=== PATIENT | male | born 1960 | race Caucasian/White ===

== ENCOUNTER → 2019-12-15 | Outpatient (REF) | payer BC | LOC: M LAB REF 17:16 | PROVIDERS: ATTEND Dermatology | DX: D49.2 Neoplasm of unspecified behavior of bone, soft tissue, and skin (principal) ==

== ENCOUNTER → 2019-12-30 | Outpatient (REF) | payer BC | LOC: M LAB REF 18:10 | PROVIDERS: ATTEND Dermatology | DX: C44.319 Basal cell carcinoma of skin of other parts of face (principal) ==

== ENCOUNTER → 2025-04-07 | Outpatient (CLI) | payer BC | LOC: M PLARAD 08:18 | PROVIDERS: ATTEND Otolaryngology | DX: K13.29 Other disturbances of oral epithelium, including tongue (principal); J32.8 Other chronic sinusitis; J34.2 Deviated nasal septum ==

== ENCOUNTER 2025-04-28 08:30 | Day surgery (SDC) | payer BC ==
[~2025-04-28] VITALS: Ht 182.9 cm; Wt 119.9 kg
[~2025-04-28 08:30] MED LIST: ARIP1TAB4 PO; OMEP40CA5 PO; SILD25TA2 PO; SIMV20TA22 PO; VALS1TAB66 PO; VENL150C43 PO
[2025-04-28] MEDS ORDERED: LIDOCAINE 1% SDV 5 ML VIAL SC PRN (08:50)
[2025-04-28] MEDS: LR 1,000 ML IV SCH (08:56)
[2025-04-28] MEDS ORDERED: SUGAMMADEX SODIUM 500 MG/5 ML VIAL As Ordered ONE (09:21)
[2025-04-28] MEDS ORDERED: dexAMETHasone 4 MG/ML 1 ML VIAL As Ordered ONE (09:21)
[2025-04-28] MEDS ORDERED: LIDOCAINE 2% 100 MG/5 ML SDV (FOR ANES.) As Ordered ONE (09:21)
[2025-04-28] MEDS ORDERED: ONDANSETRON 4MG 2ML VIAL As Ordered ONE (09:21)
[2025-04-28] MEDS ORDERED: ROCURONIUM BROMIDE 50MG/5ML VIAL As Ordered ONE (09:21)
[2025-04-28] MEDS ORDERED: MIDAZOLAM INJ 2 MG/2 ML VIAL As Ordered ONE (09:27)
[2025-04-28] MEDS: OXYMETAZOLINE 0.05% NASAL SPRAY As Ordered ONE (11:15)
[2025-04-28] MEDS ORDERED: ACETAMINOPHEN 1000MG/100ML IV BAG As Ordered ONE (11:33)
[2025-04-28] MEDS ORDERED: GLYCOPYRROLATE INJ 0.2 MG/ML 2 ML VIAL As Ordered ONE (11:39)
[2025-04-28] MEDS: metroNIDAZOLE/NACL 500 MG (5 MG/ML) 100 ML BAG As Ordered ONE (11:41)
[2025-04-28] MEDS: LIDOCAINE W/EPINEPHrine 1% 20 ML VIAL As Ordered ONE (12:23)
[2025-04-28] MEDS ORDERED: HYDROMORPHONE HCL 0.5 MG/0.5 ML SYRINGE IV PRN (12:40)
[2025-04-28] MEDS ORDERED: ONDANSETRON 4MG 2ML VIAL IV PRN (12:40)
[2025-04-28] MEDS ORDERED: LR 1,000 ML IV SCH (12:40)
[2025-04-28 13:42] VITALS: BP 124/73; TEMP 97.1; O2SAT 96
== END 2025-04-28 13:44 | disposition home or self-care (01) ==
LOC: M SDC 08:30
PROVIDERS: ATTEND Otolaryngology
DX: D00.07 Carcinoma in situ of tongue (principal); I10 Essential (primary) hypertension; E78.00 Pure hypercholesterolemia, unspecified; G47.30 Sleep apnea, unspecified; K21.9 Gastro-esophageal reflux disease without esophagitis; Z79.899 Other long term (current) drug therapy; Z90.49 Acquired absence of other specified parts of digestive tract; Z90.89 Acquired absence of other organs
CPT/HCPCS: 41112; 88305; 93005; J0131; J0690; J1100; J1596; J1836; J2250; J2405; J3010

== ENCOUNTER 2025-05-26 10:46 | Day surgery (SDC) | payer BC ==
[~2025-05-26] VITALS: Ht 182.9 cm; Wt 120.2 kg
[2025-05-26] MEDS ORDERED: LIDOCAINE 2% 100 MG/5 ML SDV (FOR ANES.) As Ordered ONE (10:52)
[2025-05-26] MEDS ORDERED: ROCURONIUM BROMIDE 50MG/5ML VIAL As Ordered ONE (10:52)
[2025-05-26] MEDS ORDERED: SUGAMMADEX SODIUM 200 MG/2 ML VIAL As Ordered ONE (10:52)
[2025-05-26] MEDS ORDERED: MIDAZOLAM INJ 2 MG/2 ML VIAL As Ordered ONE (10:53)
[2025-05-26] MEDS ORDERED: dexAMETHasone 4 MG/ML 1 ML VIAL As Ordered ONE (10:53)
[2025-05-26] MEDS ORDERED: ONDANSETRON 4MG 2ML VIAL As Ordered ONE (10:53)
[2025-05-26] MEDS ORDERED: LIDOCAINE 5% OINT 30 GM TUBE As Ordered ONE (11:26)
[2025-05-26] MEDS: LR 1,000 ML IV SCH (11:32)
[2025-05-26] MEDS: dexAMETHasone 4 MG/ML 1 ML VIAL IV ONE (11:41)
[2025-05-26] MEDS ORDERED: GLYCOPYRROLATE INJ 0.2 MG/ML 2 ML VIAL As Ordered ONE (11:42)
[2025-05-26] MEDS ORDERED: PHENYLephrine 500MCG 5ML (100MCG/ML) SYRINGE As Ordered ONE (12:08)
[2025-05-26] MEDS: metroNIDAZOLE/NACL 500 MG (5 MG/ML) 100 ML BAG As Ordered ONE (12:19)
[2025-05-26] MEDS: LIDOCAINE W/EPINEPHrine 1% 20 ML VIAL As Ordered ONE (12:22)
[2025-05-26] MEDS ORDERED: ACETAMINOPHEN 1000MG/100ML IV BAG As Ordered ONE (12:26)
[2025-05-26] MEDS ORDERED: VASOPRESSIN INJ 20UNITS/ML 1ML VIAL As Ordered ONE (13:16)
[2025-05-26] MEDS ORDERED: HYDROmorphone HCL 2 MG/ML 1 ML VIAL As Ordered ONE (13:53)
[2025-05-26] MEDS ORDERED: HYDROMORPHONE HCL 0.5 MG/0.5 ML SYRINGE IV PRN (14:35)
[2025-05-26] MEDS: ONDANSETRON 4MG 2ML VIAL IV PRN (15:28)
[2025-05-26 16:07] VITALS: BP 128/72; TEMP 98.1; O2SAT 95
== END 2025-05-26 16:15 | disposition home or self-care (01) ==
LOC: M SDC 10:46
PROVIDERS: ATTEND Otolaryngology
DX: D00.07 Carcinoma in situ of tongue (principal); I10 Essential (primary) hypertension; E78.00 Pure hypercholesterolemia, unspecified; K21.9 Gastro-esophageal reflux disease without esophagitis; G47.30 Sleep apnea, unspecified; Z79.899 Other long term (current) drug therapy; Z90.49 Acquired absence of other specified parts of digestive tract; Z90.89 Acquired absence of other organs

== ENCOUNTER 2025-05-28 10:47 | Inpatient (IN) | payer BC ==
[~2025-05-28] VITALS: Ht 182.9 cm; Wt 118.1 kg
[2025-05-28] MEDS: PANTOPRAZOLE 40MG VIAL IV SCH (09:00)
[2025-05-28] MEDS ORDERED: HYDR-3716 PO (11:03)
[2025-05-28] MEDS ORDERED: PERI12LIQ SS (11:03)
[2025-05-28 12:27] LABS: BASO # 0.1 10^3/uL (0.0-0.2); BASO % 0.5 % (0.0-1.0); EOS # 0.1 10^3/uL (0.0-0.5); EOS % 0.6 % (0.0-3.0); LYMPH # 3.0 10^3/uL (1.5-5.0); LYMPH % 28.3 % (24.0-44.0); MONO # 0.9 10^3/uL (0.0-0.8); MONO % 8.4 % (2.0-8.0); NEUTROPHILS # 6.6 10^3/uL (1.5-8.5); NEUTROPHILS % 61.8 % (36.0-66.0); PLATELET COUNT, AUTOMATED 260 10^3/uL (150-450)
[2025-05-28] MEDS ORDERED: ISOVUE-370 76% 100 ML VIAL As Ordered ONE (12:46)
[2025-05-28 13:21] LABS: ERYTHROCYTE SEDIMENTATION RATE 61 mm/hr (0-20)
[2025-05-28 13:41] LABS: C REACTIVE PROTEIN QUANTITATIV 7.78 MG/DL (<1.0)
[2025-05-28] MEDS ORDERED: HOME MED LIST COMPLETE! XX SCH (14:15)
[2025-05-28] MEDS: AMPICILLIN SOD/SULBACTAM SOD 3 GM in DEXTROSE 5% (D5W) MINI-BAG PLU 100 ML IV ONE (14:45)
[2025-05-28] MEDS ORDERED: D5W/0.45% SODIUM CHLORIDE 1,000 ML IV SCH (16:00)
[2025-05-28] MEDS: NS (Normal Saline) 0.9% 1,000 ML IV ONE (16:06)
[2025-05-28 16:42] LABS: CALCIUM LEVEL 9.3 MG/DL (8.3-10.6); CARBON DIOXIDE LEVEL 24.0 MMOL/L (20-31); CHLORIDE LEVEL 104.0 MMOL/L (98-107); CREATININE FOR GFR 1.06 MG/DL (0.70-1.30); GLOMERULAR FILTRATION RATE 79.4 (>49); POTASSIUM SERUM 4.7 MMOL/L (3.5-5.1); SODIUM LEVEL 141.0 MMOL/L (136-145)
[2025-05-28 17:03] VITALS: BP 139/93; TEMP 97.7; O2SAT 94
[2025-05-28] MEDS: D5W/0.45% SODIUM CHLORIDE 1,000 ML IV SCH (18:16)
[2025-05-28 19:41] VITALS: BP 142/83; TEMP 97.6; O2SAT 92
[2025-05-28] MEDS: CHLORHEXIDINE GLUCONATE 0.12% 15 ML UDC MT SCH (20:47)
[2025-05-28] MEDS: dexAMETHasone 4 MG/ML 1 ML VIAL IV SCH (20:47)
[2025-05-28] MEDS: AMPICILLIN SOD/SULBACTAM SOD 3 GM in DEXTROSE 5% (D5W) MINI-BAG PLU 100 ML IV SCH (20:47)
[2025-05-28] MEDS ORDERED: VENLAFAXINE **XR** 75MG CAPSULE PO SCH (21:00)
[2025-05-28] MEDS ORDERED: SIMVASTATIN 20 MG TAB PO SCH (21:00)
[2025-05-28 23:05] VITALS: BP 135/79; TEMP 97.7; O2SAT 92
[2025-05-29 03:29] VITALS: BP 137/78; TEMP 97; O2SAT 92
[2025-05-29 06:18] LABS: PLATELET COUNT, AUTOMATED 282 10^3/uL (150-450)
[2025-05-29 06:42] LABS: C REACTIVE PROTEIN QUANTITATIV 6.21 MG/DL (<1.0); CALCIUM LEVEL 8.8 MG/DL (8.3-10.6); CARBON DIOXIDE LEVEL 27 MMOL/L (20-31); CHLORIDE LEVEL 101 MMOL/L (98-107); CREATININE FOR GFR 0.86 MG/DL (0.70-1.30); GLOMERULAR FILTRATION RATE > 90.0 (>49); POTASSIUM SERUM 4.0 MMOL/L (3.5-5.1); SODIUM LEVEL 140 MMOL/L (136-145)
[2025-05-29 08:02] VITALS: BP 129/77; TEMP 97; O2SAT 93
[2025-05-29] MEDS: ENOXAPARIN 40 MG/0.4 ML SYRINGE (J1650 PER 10MG) SC SCH (10:27)
[2025-05-29 14:30] VITALS: BP 155/87; TEMP 97.6; O2SAT 95
[2025-05-29] MEDS: VALSARTAN 80MG TAB PO SCH (14:40)
[2025-05-29] MEDS: VENLAFAXINE **XR** 75MG CAPSULE PO ONE (15:56)
[2025-05-29 20:07] VITALS: BP 120/72; TEMP 97.5; O2SAT 93
[2025-05-29] MEDS: SIMVASTATIN 20 MG TAB PO SCH (20:27)
[2025-05-30 06:00] VITALS: BP 119/74; TEMP 97.2; O2SAT 93
[2025-05-30 07:22] LABS: BASO # 0.0 10^3/uL (0.0-0.2); BASO % 0.2 % (0.0-1.0); EOS # 0.0 10^3/uL (0.0-0.5); EOS % 0.1 % (0.0-3.0); LYMPH # 2.7 10^3/uL (1.5-5.0); LYMPH % 20.6 % (24.0-44.0); MONO # 1.0 10^3/uL (0.0-0.8); MONO % 8.0 % (2.0-8.0); NEUTROPHILS # 9.1 10^3/uL (1.5-8.5); NEUTROPHILS % 70.5 % (36.0-66.0); PLATELET COUNT, AUTOMATED 287 10^3/uL (150-450)
[2025-05-30 09:37] VITALS: BP 135/80
[2025-05-30] MEDS ORDERED: AMOX875T2 PO (12:27)
[2025-05-30] MEDS ORDERED: VENLAFAXINE **XR** 75MG CAPSULE PO SCH (21:00)
== END 2025-05-30 15:00 | disposition home or self-care (01) | DRG 721 ==
LOC: M ED 10:47 → M ED INP 15:38 → M PCU 17:02 → M MS5PR 05-29 14:25
PROVIDERS: ADMIT Internal Medicine; ATTEND Internal Medicine
DX: T81.49XA Infection following a procedure, other surgical site, initial encounter (principal); I10 Essential (primary) hypertension; E78.5 Hyperlipidemia, unspecified; F32.A Depression, unspecified; F41.9 Anxiety disorder, unspecified; G47.33 Obstructive sleep apnea (adult) (pediatric); K02.9 Dental caries, unspecified; K21.9 Gastro-esophageal reflux disease without esophagitis; R22.1 Localized swelling, mass and lump, neck; D00.07 Carcinoma in situ of tongue; Z85.828 Personal history of other malignant neoplasm of skin; Z79.899 Other long term (current) drug therapy; Y83.8 Other surgical procedures as the cause of abnormal reaction of the patient, or of later complication, without mention of misadventure at the time of the procedure

== ENCOUNTER → 2025-07-05 | Outpatient (CLI) | payer BC ==
[~2025-07-05] MED LIST changes: +AMOX875T2 PO; +HYDR-3716 PO; +PERI12LIQ SS
== END ==
LOC: M ONCR 13:07
PROVIDERS: ATTEND General Practice
DX: C02.2 Malignant neoplasm of ventral surface of tongue (principal); K13.21 Leukoplakia of oral mucosa, including tongue; Z98.890 Other specified postprocedural states; Z79.899 Other long term (current) drug therapy

== ENCOUNTER 2025-07-13 07:49 | Outpatient (RCR) | payer BC | END 2025-07-15 | LOC: M ONCR 07:49 | PROVIDERS: ATTEND General Practice | DX: Z51.0 Encounter for antineoplastic radiation therapy (principal); C02.2 Malignant neoplasm of ventral surface of tongue ==

== ENCOUNTER 2025-08-10 10:45 | Outpatient (RCR) | payer BC ==
[~2025-08-10 10:45] MED LIST changes: +FLUC100T3 PO; +LIDO100S29 SSP
[2025-08-15] MEDS ORDERED: OXYC1SOL3 PO (11:27)
== END 2025-08-14 ==
LOC: M ONCR 10:45
PROVIDERS: ATTEND General Practice
DX: Z51.0 Encounter for antineoplastic radiation therapy (principal); C02.2 Malignant neoplasm of ventral surface of tongue

== ENCOUNTER 2025-09-06 10:42 | Outpatient (RCR) | payer BC ==
[~2025-09-06 10:42] MED LIST changes: +OXYC1SOL3 PO
== END 2025-09-14 ==
LOC: M ONCR 10:42
PROVIDERS: ATTEND General Practice
DX: Z51.0 Encounter for antineoplastic radiation therapy (principal); C02.2 Malignant neoplasm of ventral surface of tongue